=== PATIENT | female | born 1990 | race Two or more races ===

== ENCOUNTER 2018-10-25 15:30 | Observation (INO) | payer OTHER ==
[~2018-10-25] VITALS: Ht 167.6 cm; Wt 72.6 kg
[2018-10-25] MEDS ORDERED: LACTATED RINGER'S 1,000 ML IV ONE (16:56)
[2018-10-25] MEDS ORDERED: ACETAMINOPHEN 500 MG TAB PO ONE (17:00)
[2018-10-25 17:37] LABS: Alcohol, Urine < 3.0 mg/dL (0-5); Amphetamine Screen, Urine NEGATIVE (NEGATIVE); Barbiturate Scree,Urine NEGATIVE (NEGATIVE); Benzodiazephine Screen, Urine NEGATIVE (NEGATIVE); Cannabinoid Screen, Urine NEGATIVE (NEGATIVE); Cocaine Screen, Urine NEGATIVE (NEGATIVE); Opiate Scree,Urine NEGATIVE (NEGATIVE); Phencyclidine Screen, Urine NEGATIVE (NEGATIVE)
== END 2018-10-25 18:15 | disposition home or self-care (01) | DRG 833 ==
LOC: LDRP 15:30
PROVIDERS: ADMIT Obstetrics & Gynecology; ATTEND Obstetrics & Gynecology
DX: O26.892 Other specified pregnancy related conditions, second trimester (principal); R51 Headache; R10.9 Unspecified abdominal pain; O99.89 Other specified diseases and conditions complicating pregnancy, childbirth and the puerperium; M54.9 Dorsalgia, unspecified; Z3A.25 25 weeks gestation of pregnancy
CPT/HCPCS: 59025; 80307; 81002; G0378; 96361; 96366

== ENCOUNTER 2018-12-20 13:16 | Observation (INO) | payer OTHER ==
[~2018-12-20] VITALS: Ht 167.6 cm; Wt 69.9 kg
[2018-12-20 13:25] VITALS: BP 137/80
[2018-12-20] MEDS ORDERED: TERBUTALINE SULFATE 1 MG/ML 1ML VIAL SC ONE (15:15)
[2018-12-20] MEDS ORDERED: LACTATED RINGER'S 1,000 ML IV ONE (15:15)
[2018-12-20 15:39] LABS: Urine Bacteria NONE SEEN /hpf (None Seen); Urine Blood Negative /uL (Negative); Urine Specific Gravity 1.004 (1.001-1.035); Urine WBC 2 /hpf (0 - 5)
[2018-12-20 15:52] LABS: Alcohol, Urine < 3.0 mg/dL (0-5); Amphetamine Screen, Urine NEGATIVE (NEGATIVE); Barbiturate Scree,Urine NEGATIVE (NEGATIVE); Benzodiazephine Screen, Urine NEGATIVE (NEGATIVE); Cannabinoid Screen, Urine NEGATIVE (NEGATIVE); Cocaine Screen, Urine NEGATIVE (NEGATIVE); Opiate Scree,Urine NEGATIVE (NEGATIVE); Phencyclidine Screen, Urine NEGATIVE (NEGATIVE)
== END 2018-12-20 16:40 | disposition home or self-care (01) | DRG 566 ==
LOC: ER 13:16 → LDRP 14:00
PROVIDERS: ADMIT Obstetrics & Gynecology; ATTEND Obstetrics & Gynecology
DX: O26.893 Other specified pregnancy related conditions, third trimester (principal); M54.5 Low back pain; R55 Syncope and collapse; R42 Dizziness and giddiness; Z98.891 History of uterine scar from previous surgery; Z3A.33 33 weeks gestation of pregnancy
CPT/HCPCS: 59025; 76805; 80307; 81001; 81002; 96360; 96372; 99284; G0378; J3105

== ENCOUNTER 2019-01-12 15:31 | Observation (INO) | payer OTHER ==
[~2019-01-12] VITALS: Ht 167.6 cm; Wt 72.6 kg
[2019-01-12 15:39] VITALS: BP 105/50
[2019-01-12] MEDS ORDERED: PREN-96 PO (16:19)
[2019-01-12] MEDS ORDERED: FERR-20 PO (16:19)
[2019-01-12] MEDS ORDERED: LACTATED RINGER'S 1,000 ML IV ONE ×2 (17:00→20:24)
[2019-01-12] MEDS ORDERED: cefTRIAXone 1GM/50ML D5W 50 ML IV ONE (17:15)
[2019-01-12] MEDS: TERBUTALINE SULFATE 1 MG/ML 1ML VIAL SC SCH ×3 (17:40→18:45)
[2019-01-12 18:06] LABS: Alcohol, Urine < 3.0 mg/dL (0-5); Amphetamine Screen, Urine NEGATIVE (NEGATIVE); Barbiturate Scree,Urine NEGATIVE (NEGATIVE); Benzodiazephine Screen, Urine NEGATIVE (NEGATIVE); Cannabinoid Screen, Urine NEGATIVE (NEGATIVE); Cocaine Screen, Urine NEGATIVE (NEGATIVE); Opiate Scree,Urine NEGATIVE (NEGATIVE); Phencyclidine Screen, Urine NEGATIVE (NEGATIVE)
[2019-01-12] MEDS: BETAMETHASONE ACET (6MG/ML) 5ML VIAL IM SCH (18:45)
[2019-01-12] MEDS: NIFEdipine 10 MG CAP PO SCH (20:50)
[2019-01-13] MEDS: NIFEdipine 10 MG CAP PO SCH ×5 (00:43→16:00)
[2019-01-13] MEDS ORDERED: cefTRIAXone 1GM/50ML D5W 50 ML IV SCH (09:00)
[2019-01-13] MEDS ORDERED: BETAMETHASONE ACET (6MG/ML) 5ML VIAL IM SCH (10:00)
[2019-01-13] MEDS ORDERED: ACETAMINOPHEN 325 MG TAB PO PRN (12:00)
[2019-01-13] MEDS: BETAMETHASONE ACET (6MG/ML) 5ML VIAL IM SCH (15:44)
== END 2019-01-13 17:30 | disposition home or self-care (01) | DRG 566 ==
LOC: ER 15:31 → LDRP 15:55
PROVIDERS: ADMIT Specialist; ATTEND Specialist
DX: O62.9 Abnormality of forces of labor, unspecified (principal); O26.893 Other specified pregnancy related conditions, third trimester; M54.5 Low back pain; R10.30 Lower abdominal pain, unspecified; O99.89 Other specified diseases and conditions complicating pregnancy, childbirth and the puerperium; O34.219 Maternal care for unspecified type scar from previous cesarean delivery; Z3A.37 37 weeks gestation of pregnancy
CPT/HCPCS: 59025; 76805; 80307; 81002; 96365; 96366; 96372; 99284; G0378; J0696; J0702; J3105; J7030; 96361

== ENCOUNTER 2019-01-24 15:56 | Inpatient (IN) | payer SELFPAY ==
[~2019-01-24] VITALS: Ht 167.6 cm; Wt 74.8 kg
[~2019-01-24 15:56] MED LIST: FERR-20 PO; PREN-96 PO
[2019-01-24] MEDS ORDERED: TETRACAINE 1% INJ 2 ML VIAL IJ ONE (16:51)
[2019-01-24 17:06] LABS: Basophils # (auto) 0.1 uL; Monocytes # (auto) 0.7 uL; Nucleated Red Blood Cells % 0.1 %; Red Cell Distribution Width 15.2 % (11.8-14.3); White Blood Cell 9.4 10^3/uL (4.4-10.8)
[2019-01-24 17:09] LABS: Basophils % (auto) 0.9 % (0.0-2.0); Eosinophils # (auto) 0 uL; Eosinophils % (auto) 0.3 % (0.0-7.0); Hematocrit 27.8 % (36.0-46.0); Lymphocytes # (auto) 1.7 uL; Lymphocytes % (auto) 17.5 % (10.0-50.0); Mean Corpuscular Hemoglobin 27.4 pg (28.0-32.0); Mean Corpuscular Hgb Conc. 32.5 g/dL (32.0-36.0); Mean Corpuscular Volume 84.2 fL (80.0-100.0); Monocytes % (auto) 7.9 % (0.0-12.0); Neutrophils # (auto) 6.9 uL; Neutrophils % (auto) 73.4 % (37.0-80.0); Platelet Count (auto) 230 10^3/uL (140-450)
[2019-01-24] MEDS ORDERED: fentaNYL CITRATE 100 MCG/2 ML VL ONE (17:13)
[2019-01-24] MEDS ORDERED: MORPHINE SULF(PF) 0.5MG/ML 10ML VIAL ONE (17:13)
[2019-01-24] MEDS ORDERED: BUPIVACAINE/DEXTROSE MPF 0.75% 2 ML AMP IT ONE (17:13)
[2019-01-24] MEDS ORDERED: ePHEDrine SULFATE 50 MG/ML AMP ONE (17:13)
[2019-01-24] MEDS ORDERED: MIDAZOLAM HCL 1MG/1ML-2 ML VIAL ONE (17:13)
[2019-01-24] MEDS ORDERED: ONDANSETRON HCL 4 MG/2 ML VIAL ONE (17:13)
[2019-01-24] MEDS ORDERED: EPINEPHrine HCL 1 MG/1 ML AMP ONE (17:13)
[2019-01-24] MEDS ORDERED: SODIUM CHLORIDE LOCK 10 ML ONE (17:13)
[2019-01-24] MEDS ORDERED: OXYTOCIN 10 UNIT/ML 10ML VIAL ONE (17:13)
[2019-01-24] MEDS ORDERED: ceFAZolin 1GM VL ONE (17:13)
[2019-01-24 17:21] LABS: Albumin 2.7 g/dL (3.4-5.0); Calcium 8.6 mg/dL (8.5-10.1); Potassium 3.9 mmol/L (3.5-5.1)
[2019-01-24 17:22] LABS: Urine Bacteria FEW /hpf (None Seen); Urine Blood Negative /uL (Negative); Urine Mucus FEW (None Seen); Urine Specific Gravity 1.014 (1.001-1.035); Urine WBC 7 /hpf (0 - 5)
[2019-01-24 17:23] LABS: INR 0.92 (0.9-1.15); Partial Thromboplastin Time 20.2 sec (23.64-32.05)
[2019-01-24 17:26] LABS: Alcohol, Urine < 3.0 mg/dL (0-5); Amphetamine Screen, Urine NEGATIVE (NEGATIVE); Barbiturate Scree,Urine NEGATIVE (NEGATIVE); Benzodiazephine Screen, Urine NEGATIVE (NEGATIVE); Cannabinoid Screen, Urine NEGATIVE (NEGATIVE); Cocaine Screen, Urine NEGATIVE (NEGATIVE); Opiate Scree,Urine NEGATIVE (NEGATIVE); Phencyclidine Screen, Urine NEGATIVE (NEGATIVE)
[2019-01-24 17:26] LABS: BUN/Creatinine Ratio 18.5; Bilirubin, Total 0.2 mg/dL (0.2-1.0); Total Protein 7.5 g/dL (6.4-8.2); Uric Acid 2.4 mg/dL (2.6-6.0)
[2019-01-24] MEDS ORDERED: ONDANSETRON HCL 4 MG/2 ML VIAL IV PRN (17:30)
[2019-01-24] MEDS ORDERED: ceFAZolin 1GM/50ML 50 ML IV SCH (17:30)
[2019-01-24] MEDS ORDERED: KETOROLAC TROMETH 30 MG/ML 1ML VIAL IV ONE (18:30)
[2019-01-24] MEDS ORDERED: HYDROmorphone HCL 2 MG/ML VL IV PRN (18:30)
[2019-01-24] MEDS ORDERED: diphenhdrAMINE HCL 50 MG/1 ML VL IV PRN (18:30)
[2019-01-24] MEDS ORDERED: fentaNYL CITRATE 100 MCG/2 ML VL IV PRN (18:30)
[2019-01-24] MEDS ORDERED: METOCLOPRAMIDE HCL 5MG/ml INJ 2ml VIAL IV PRN (18:30)
[2019-01-24] MEDS ORDERED: MORPHINE SULFATE 4 MG/ML SYR/VIAL IV PRN (18:30)
--- NOTE | 2019-01-24 18:40 | NUR ---
Teaching: Reviewed information in [facility] booklet with patient. Discussed benefits of and risks associated with not . Discussed different positions, proper latch, feeding cues, and baby-led . Provided information of medication side effects related to . All questions and concerns addressed at this time. Patient verbalized understanding of information.
[2019-01-24 19:05] VITALS: BP 117/72
--- NOTE | 2019-01-24 19:05 | NUR ---
Post Op for LDRP: Received patient from PACU via bed to room 8A. Report received from Sindy MARRUFO. Patient A/A/Ox4, abdominal binder and bilateral SCD's are in place, IV fluids placed on pump and infusing per order, incisional site dressing clean/dry/intact and rea catheter to gravity draining clear yellow urine. Peripad clean and dry, mark care provided by Sindy MARRUFO in PACU. Incentive Spirometer at bedside and instruction on proper use with return demonstration done by patient. Pt denies sob, pain, or discomfort.
[2019-01-24 20:00] VITALS: BP 125/69
[2019-01-24 21:00] VITALS: BP 133/72
[2019-01-24 22:00] VITALS: BP 112/60
[2019-01-24 23:00] VITALS: BP 111/62
[2019-01-24] MEDS: LACT. RINGERS/OXYTOCIN 20UNITS 1,000 ML IV SCH (23:00)
[2019-01-24] MEDS: LACTATED RINGER'S 1,000 ML IV SCH (23:49)
[2019-01-24] MEDS: MORPHINE SULF INJ 2 MG/ML SYRINGE 1ML IV PRN (23:50)
[2019-01-25] VITALS (11 sets, daily range): BP systolic 100–120; BP diastolic 55–78
[2019-01-25 00:01] LABS: Basophils # (auto) 0 uL; Basophils % (auto) 0.1 % (0.0-2.0); Eosinophils # (auto) 0 uL; Eosinophils % (auto) 0.1 % (0.0-7.0); Hematocrit 28.3 % (36.0-46.0); Hemoglobin 8.9 g/dL (12.2-16.2); Lymphocytes # (auto) 1.6 uL; Lymphocytes % (auto) 9.2 % (10.0-50.0); Mean Corpuscular Hemoglobin 26.3 pg (28.0-32.0); Mean Corpuscular Hgb Conc. 31.6 g/dL (32.0-36.0); Mean Corpuscular Volume 83.4 fL (80.0-100.0); Monocytes % (auto) 6.1 % (0.0-12.0); Neutrophils # (auto) 14.3 uL; Neutrophils % (auto) 84.5 % (37.0-80.0); Platelet Count (auto) 209 10^3/uL (140-450); Red Blood Cells 3.39 10^6/uL (4.0-5.20); Red Cell Distribution Width 15.3 % (11.8-14.3); White Blood Cell 16.9 10^3/uL (4.4-10.8)
[2019-01-25] MEDS: LACTATED RINGER'S 1,000 ML IV SCH ×3 (00:31→16:31)
[2019-01-25] MEDS: ceFAZolin 1GM/50ML 50 ML IV SCH ×3 (01:41→17:35)
[2019-01-25] MEDS: MORPHINE SULF INJ 2 MG/ML SYRINGE 1ML IV PRN ×2 (04:44→08:53)
--- NOTE | 2019-01-25 05:00 | NUR ---
Itching Earlier this shift, pt c/o itching after arriving from PACU. Benadryl given at 2046 per MD order. Pt c/o itching again at 429. Pt states itching is tolerable and was relieved after benadryl but came back around 230. Pt has not mentioned itching to this RN until 429. Pt PRN benadryl order reached complete at 2299. SBAR and update to Delta Fisher CNM, order received for benadryl x1.
[2019-01-25] MEDS ORDERED: diphenhdrAMINE HCL 50 MG/1 ML VL IV ONE (05:15)
[2019-01-25] MEDS: LACT. RINGERS/OXYTOCIN 20UNITS 1,000 ML IV SCH (05:35)
[2019-01-25 07:59] LABS: Basophils # (auto) 0 uL; Basophils % (auto) 0.3 % (0.0-2.0); Eosinophils # (auto) 0 uL; Eosinophils % (auto) 0.3 % (0.0-7.0); Hemoglobin 8.5 g/dL (12.2-16.2); Lymphocytes # (auto) 1.4 uL; Lymphocytes % (auto) 10.8 % (10.0-50.0); Mean Corpuscular Hemoglobin 27.1 pg (28.0-32.0); Mean Corpuscular Hgb Conc. 32.7 g/dL (32.0-36.0); Mean Corpuscular Volume 82.7 fL (80.0-100.0); Monocytes # (auto) 0.8 uL; Monocytes % (auto) 6.5 % (0.0-12.0); Neutrophils # (auto) 10.5 uL; Neutrophils % (auto) 82.1 % (37.0-80.0); Platelet Count (auto) 177 10^3/uL (140-450); Red Blood Cells 3.14 10^6/uL (4.0-5.20); White Blood Cell 12.8 10^3/uL (4.4-10.8)
[2019-01-25] MEDS ORDERED: HYDROcodone-ACET 5/325MG TAB PO PRN (09:15)
--- NOTE | 2019-01-25 09:25 | NUR ---
Rea catheter dc'd Order to discontinue rea catheter. Rea dc'd with clean technique following deflation of balloon. Patient tolerated well with no complaints of pain. Continue care.
--- NOTE | 2019-01-25 09:30 | NUR ---
INCISION OPEN TO AIR, CLEAN DRY AND INTACT, NO REDNESS OR EVIDENCE OF INFECTION NOTED.
[2019-01-25] MEDS: HYDROcodone-ACET 5/325MG TAB PO PRN ×3 (10:14→21:00)
--- NOTE | 2019-01-25 10:15 | NUR ---
Bottle-feeding Education: Patient encouraged to breastfeed. Benefits of and the risk of providing formula to was discussed. Patient verbalized understanding of the benefits and is aware of risk and insists on bottle-feeding. Formula provided and instruction on formula preoperation from the [facility] booklet reviewed with patient.
[2019-01-25] MEDS: DOCUSATE SOD 100 MG CAP PO SCH ×2 (10:16→22:10)
--- NOTE | 2019-01-25 11:04 | NUR ---
Received Social Service consult due to mother not receiving any care. The pt stated that initially she had her Mom's insurance. The the pt turned 28 and she was taken off her mother's insurance. Pt applied for medi-kaleb and did have an appointment but Her physician would not take it. Pt stated she applied again and was given medi-kaleb. However, by then pt was 28 weeks along. Pt states she was told she was high risk and she could not find a physician to accept her, Pt states she came here to [facility] to the clinic. Pt was paying for ultra sounds out of her own pocket. Mom was considering hiring a middleware architect but pt states it was too expensive. Pt has support from her fidieter. There are many relatives who support them. Pt and mir also has a 10yr od daught and a 2yr old toddler. Pt and mir with be returning back home to [place] after the holidays.
--- NOTE | 2019-01-25 11:30 | NUR ---
Ambulation: Patient OOB with standby assistance by RN. Patient ambulated to bathroom with steady gait. Patient able to void without difficulty. Pericare teaching provided with returned demonstration by patient. Clean gown provided and bed linen changed. Patient ambulated back to bed with steady gait and no distress noted.
[2019-01-25] MEDS: IBUPROFEN 800 MG TAB PO PRN ×2 (11:31→20:10)
[2019-01-25] MEDS ORDERED: WITCH HAZEL-GLYCERIN PAD TOP ONE ×2 (11:54→12:45)
[2019-01-25] MEDS ORDERED: DERMOPLAST 60ML BOTTLE TOP ONE ×2 (11:54→12:45)
[2019-01-25] MEDS: SIMETHICONE 80 MG CHEWABLE TABLET PO PRN (16:23)
[2019-01-25] MEDS ORDERED: diphenhdrAMINE HCL 25 MG CAP PO ONE (20:30)
[2019-01-26] MEDS: HYDROcodone-ACET 5/325MG TAB PO PRN ×4 (01:30→23:14)
[2019-01-26 02:42] VITALS: BP 93/54
[2019-01-26] MEDS: SIMETHICONE 80 MG CHEWABLE TABLET PO PRN ×2 (03:59→12:59)
[2019-01-26] MEDS: IBUPROFEN 800 MG TAB PO PRN ×3 (03:59→19:57)
[2019-01-26 05:06] LABS: RPR Non Reactive (Non Reactive)
[2019-01-26 07:10] VITALS: BP 107/59
[2019-01-26] MEDS: DOCUSATE SOD 100 MG CAP PO SCH ×2 (09:44→19:57)
[2019-01-26 11:10] VITALS: BP 102/71
--- NOTE | 2019-01-26 11:10 | NUR ---
PT UP AND AMBULATING IN THE HALLWAY, TOLERATING WELL
[2019-01-26 12:06] LABS: Rubella Antibodies, IgG 0.99 index (Immune >0.99)
--- NOTE | 2019-01-26 13:25 | NUR ---
PTs phone unit and reports that the family in the next bed and he does not want a sick child around his . This RN enters room and speaks to PT in 8B and observes visitors, there is no child in the room that is coughing or sneezing. Spoke with PT and gave her an option to change rooms. PT reports she is fine to stay in her room/bed 7a.
[2019-01-26 15:00] VITALS: BP 112/64
--- NOTE | 2019-01-26 19:00 | NUR ---
INCISION OPEN TO AIR, CLEAN DRY AND INTACT, NO REDNESS OR EVIDENCE OF INFECTION NOTED.
[2019-01-26 19:10] VITALS: BP 111/74
[2019-01-26 23:00] VITALS: BP 120/70
[2019-01-27 03:00] VITALS: BP 119/76
[2019-01-27] MEDS: HYDROcodone-ACET 5/325MG TAB PO PRN ×2 (03:45→08:25)
[2019-01-27 06:55] VITALS: BP 109/76
[2019-01-27] MEDS ORDERED: WITCH HAZEL-GLYCERIN PAD TOP ONE (07:27)
[2019-01-27] MEDS ORDERED: WITCH HAZEL-GLYCERIN PAD TOP PRN (07:30)
[2019-01-27 11:00] VITALS: BP 113/75
--- NOTE | 2019-01-27 12:15 | NUR ---
Discharge: Discharge instructions given as ordered. Pt encouraged to follow up with SENIOR BI DEVELOPER as instructed. All questions and concerns addressed. Patient verbalized understanding. Medication reconciliation completed and copy given to patient. All required/requested vaccines given and copies of vaccinations given to patient. Patient encouraged to prepare to depart unit.
--- NOTE | 2019-01-27 12:35 | NUR ---
Discharge: Patient taken to vehicle ambulatory via steady gait, wheelchair declined, with all personal belongings, accompanied by staff and family member. No distress noted at time of departure, no adverse changes in status since initial assessment.
== END 2019-01-27 12:35 | disposition home or self-care (01) | DRG 788 ==
LOC: LDRP 15:56 → OBSVTOIN 15:56 → LDRP 22:28
PROVIDERS: ADMIT Obstetrics & Gynecology; ATTEND Obstetrics & Gynecology
PROC: 10D00Z1 Extraction of Products of Conception, Low, Open Approach (ICD-10-PCS; principal; 2019-01-24 17:29)
DX: O34.219 Maternal care for unspecified type scar from previous cesarean delivery (principal); Z37.0 Single live birth; O99.02 Anemia complicating childbirth; D64.9 Anemia, unspecified; Z3A.37 37 weeks gestation of pregnancy
CPT/HCPCS: 36415; 51702; 59025; 80053; 80307; 81001; 84112; 84550; 85025; 85610; 85730; 86592; 86762; 86790; 86850; 86900; 86901; 87340; 94762; 96365; 96366; 96374; 96375; G0378; J0171; J0690; J1885; J2250; J2405; J2590

== ENCOUNTER 2022-01-05 16:45 | Inpatient (IN) | payer MEDICAID, OTHER ==
[~2022-01-05] VITALS: Ht 167.6 cm; Wt 74.0 kg
[2022-01-05] MEDS ORDERED: MORPHINE SULFATE 4 MG/ML SYR/VIAL IV ONE (17:15)
[2022-01-05] MEDS ORDERED: ONDANSETRON HCL 4 MG/2 ML VIAL IV ONE (17:15)
[2022-01-05 17:16] LABS: Urine Bacteria NONE SEEN /hpf (None Seen); Urine Blood Negative /uL (Negative); Urine Mucus FEW (None Seen); Urine Specific Gravity 1.021 (1.001-1.035); Urine WBC 3 /hpf (0 - 5)
[2022-01-05 17:22] LABS: Basophils # (auto) 0 10 ^3/uL (0-0.2); Basophils % (auto) 0.5 % (0.0-2.0); Eosinophils # (auto) 0.2 10 ^3/uL (0-0.8); Eosinophils % (auto) 2.3 % (0.0-7.0); Hematocrit 42.7 % (36.0-46.0); Lymphocytes # (auto) 2.5 10 ^3/uL (0.4-5.4); Lymphocytes % (auto) 35.5 % (10.0-50.0); Mean Corpuscular Hemoglobin 29.2 pg (28.0-32.0); Mean Corpuscular Hgb Conc. 32.8 g/dL (32.0-36.0); Mean Corpuscular Volume 89.2 fL (80.0-100.0); Monocytes # (auto) 0.5 10 ^3/uL (0-1.3); Monocytes % (auto) 7.1 % (0.0-12.0); Neutrophils # (auto) 3.9 10 ^3/uL (1.6-8.6); Neutrophils % (auto) 54.6 % (37.0-80.0); Nucleated Red Blood Cells % 0.1 %; Red Blood Cells 4.79 10^6/uL (4.0-5.20); Red Cell Distribution Width 13.7 % (11.8-14.3); White Blood Cell 7.1 10^3/uL (4.4-10.8)
[2022-01-05] MEDS ORDERED: IOHEXOL 300 MG/ML 100ML BOTTLE IJ ONE (17:31)
[2022-01-05 17:44] LABS: Albumin 4.1 g/dL (3.4-5.0); BUN/Creatinine Ratio 12.5; Calcium 9.5 mg/dL (8.5-10.1); Potassium 3.9 mmol/L (3.5-5.1)
[2022-01-05 17:46] LABS: Bilirubin, Total 0.3 mg/dL (0.2-1.0); Total Protein 7.9 g/dL (6.4-8.2)
[2022-01-06] MEDS: D5W/SOD CHLO 0.9% 1,000 ML IV SCH (02:54)
[2022-01-06] MEDS: ONDANSETRON HCL 4 MG/2 ML VIAL IV PRN ×2 (03:44→09:38)
[2022-01-06] MEDS: MORPHINE SULFATE INJ 2 MG/ml SYRG IV PRN ×3 (03:47→18:57)
[2022-01-06 04:14] LABS: INR 0.98 (0.9-1.15); Partial Thromboplastin Time 25.9 sec (24.6-33.4)
[2022-01-06] MEDS: PANTOPRAZOLE 40 MG/10 ML VIAL INJ IV SCH (09:38)
[2022-01-06] MEDS ORDERED: BUPIVACAINE W/ EPINEPH 0.25% INJ 50ML MDV ONE (12:26)
[2022-01-06] MEDS ORDERED: ceFAZolin 1GM/50ML 100 ML IV ONE (12:40)
[2022-01-06] MEDS ORDERED: MIDAZOLAM HCL 2MG/2ML 2ml VIAL (1mg/ml) ONE (12:44)
[2022-01-06] MEDS ORDERED: fentaNYL CITRATE 100 MCG/2 ML VL ONE (12:44)
[2022-01-06] MEDS ORDERED: MEPERIDINE HCL (50 MG/ML) 1 ML VIAL ONE (12:44)
[2022-01-06] MEDS ORDERED: DexAMETHasone SOD PHOS 10MG/1ML VIAL INJ ONE (12:45)
[2022-01-06] MEDS ORDERED: ROCURONIUM 10MG/ML 10ML VIAL IV ONE (12:45)
[2022-01-06] MEDS ORDERED: PROPOFOL 10 MG/ML 20 ML IV ONE (12:45)
[2022-01-06] MEDS ORDERED: ONDANSETRON HCL 4 MG/2 ML VIAL IV PRN (14:30)
[2022-01-06] MEDS ORDERED: LABETALOL HCL 5 MG/ML 4ML SYRINGE IV PRN (14:30)
[2022-01-06] MEDS ORDERED: MORPHINE SULFATE 4 MG/ML SYR/VIAL IV PRN (14:30)
[2022-01-06] MEDS ORDERED: MIDAZOLAM HCL 2MG/2ML 2ml VIAL (1mg/ml) IV PRN (14:30)
[2022-01-06] MEDS ORDERED: KETOROLAC TROMETH 30 MG/ML 1ML VIAL IV ONE (14:30)
[2022-01-06] MEDS ORDERED: ePHEDrine SULFATE 50 MG/ML AMP IV PRN (14:30)
[2022-01-06] MEDS ORDERED: HYDROmorphone HCL 2 MG/ML VL/or syr ONE (14:33)
[2022-01-06] MEDS: HYDROmorphone HCL 2 MG/ML VL/or syr IV PRN ×3 (14:33→15:27)
[2022-01-06 19:57] VITALS: BP 126/71
[2022-01-06 20:00] VITALS: BP 126/71
[2022-01-06 20:57] VITALS: BP 108/70
[2022-01-07 00:36] VITALS: BP 108/70
[2022-01-07] MEDS: MORPHINE SULFATE INJ 2 MG/ml SYRG IV PRN ×2 (04:11→09:09)
[2022-01-07 05:46] VITALS: BP 107/65
[2022-01-07 06:48] LABS: Basophils # (auto) 0 10 ^3/uL (0-0.2); Basophils % (auto) 0.2 % (0.0-2.0); Eosinophils # (auto) 0.1 10 ^3/uL (0-0.8); Eosinophils % (auto) 0.9 % (0.0-7.0); Hematocrit 37.8 % (36.0-46.0); Hemoglobin 12.7 g/dL (12.2-16.2); Lymphocytes # (auto) 1.2 10 ^3/uL (0.4-5.4); Lymphocytes % (auto) 12.3 % (10.0-50.0); Mean Corpuscular Hemoglobin 30.3 pg (28.0-32.0); Mean Corpuscular Hgb Conc. 33.6 g/dL (32.0-36.0); Monocytes # (auto) 0.5 10 ^3/uL (0-1.3); Monocytes % (auto) 5.1 % (0.0-12.0); Neutrophils # (auto) 7.8 10 ^3/uL (1.6-8.6); Neutrophils % (auto) 81.5 % (37.0-80.0); Nucleated Red Blood Cells % 0.1 %; Red Cell Distribution Width 13.7 % (11.8-14.3); White Blood Cell 9.6 10^3/uL (4.4-10.8)
[2022-01-07 07:33] LABS: BUN/Creatinine Ratio 6.6; Calcium 8.9 mg/dL (8.5-10.1); Potassium 3.7 mmol/L (3.5-5.1)
[2022-01-07 09:00] VITALS: BP 109/64
[2022-01-07] MEDS: PANTOPRAZOLE 40 MG/10 ML VIAL INJ IV SCH (09:09)
[2022-01-07] MEDS: D5W/SOD CHLO 0.9% 1,000 ML IV SCH (09:10)
[2022-01-07] MEDS: HYDROcodone-ACET 5/325MG TAB PO PRN ×2 (12:07→16:43)
[2022-01-07 13:00] VITALS: BP 111/68
[2022-01-07 17:01] VITALS: BP 124/81
== END 2022-01-07 18:25 | disposition home or self-care (01) | DRG 228 ==
LOC: ER 16:45 → OVERFLOW 01-06 02:46 → WEST WING 01-06 17:20
PROVIDERS: ADMIT Nurse Practitioner; ATTEND Student in an Organized Health Care Education/Training Program
PROC: 0WQF0ZZ Repair Abdominal Wall, Open Approach (ICD-10-PCS; principal; 2022-01-06 13:02)
DX: K42.0 Umbilical hernia with obstruction, without gangrene (principal); Z20.822 Contact with and (suspected) exposure to COVID-19; Z83.3 Family history of diabetes mellitus
CPT/HCPCS: 36415; 74177; 80048; 80053; 81001; 81025; 85025; 85610; 85730; 87426; 96361; 96374; 96375; 96376; C9113; G0378; J0690; J1100; J2250; J2405; J2704; J7042

== ENCOUNTER 2022-12-16 08:57 | Emergency (ER) | payer MEDICAID ==
[~2022-12-16] VITALS: Ht 170.2 cm; Wt 91.7 kg
[~2022-12-16 08:57] MED LIST changes: -FERR-20 PO; +FERR325T24 PO
[2022-12-16 11:35] VITALS: BP 138/93; RESP 18; TEMP 97.7; O2SAT 97
[2022-12-16 12:27] VITALS: PULSE 51
[2022-12-16 13:04] LABS: Basophils # (auto) 0.1 10 ^3/uL (0-0.2); Basophils % (auto) 0.8 % (0.0-2.0); Eosinophils # (auto) 0.1 10 ^3/uL (0-0.8); Eosinophils % (auto) 1.8 % (0.0-7.0); Hematocrit 40.9 % (36.0-46.0); Hemoglobin 13.6 g/dL (12.2-16.2); Lymphocytes # (auto) 2.4 10 ^3/uL (0.4-5.4); Lymphocytes % (auto) 30.3 % (10.0-50.0); Mean Corpuscular Hemoglobin 30.7 pg (28.0-32.0); Mean Corpuscular Hgb Conc. 33.2 g/dL (32.0-36.0); Mean Corpuscular Volume 92.5 fL (80.0-100.0); Monocytes # (auto) 0.6 10 ^3/uL (0-1.3); Monocytes % (auto) 7.7 % (0.0-12.0); Neutrophils # (auto) 4.6 10 ^3/uL (1.6-8.6); Neutrophils % (auto) 59.4 % (37.0-80.0); Nucleated Red Blood Cells % 0.2 %; Red Blood Cells 4.42 10^6/uL (4.0-5.20); Red Cell Distribution Width 13.4 % (11.8-14.3); White Blood Cell 7.8 10^3/uL (4.4-10.8)
[2022-12-16 13:18] LABS: Alanine Aminotransferase 109 U/L (7-40); Albumin 4.8 g/dL (3.2-4.8); Alkaline Phosphatase 82 U/L (46-116); Anion Gap 6 (5-15); Aspartate Aminotransferase 42 U/L (13-40); Bilirubin, Total 0.4 mg/dL (0.2-1.0); Blood Urea Nitrogen 10 mg/dL (9-23); Calcium 10.2 mg/dL (8.5-10.1); Carbon Dioxide 28 mmol/L (20-30); Chloride 108 mmol/L (98-107); Glucose 89 mg/dL (74-106); Sodium 142 mmol/L (136-145); Total Protein 7.4 g/dL (5.7-8.2)
[2022-12-16] MEDS ORDERED: NAP500T PO (13:42)
[2022-12-16] MEDS ORDERED: CYCL-839 PO (13:42)
[2022-12-16] MEDS ORDERED: KETOROLAC TROMETH 60MG/2ML VIAL IM ONE (13:45)
== END 2022-12-16 14:13 | disposition home or self-care (01) ==
LOC: ER 08:57
DX: M79.602 Pain in left arm (principal); R51.9 Headache, unspecified; Z98.890 Other specified postprocedural states; Z79.899 Other long term (current) drug therapy
CPT/HCPCS: 36415; 72125; 80053; 81025; 84484; 85025; 93005; 93971; 96372; 99285; J1885

== ENCOUNTER 2023-12-04 17:24 | Emergency (ER) | payer MEDICAID ==
[~2023-12-04] VITALS: Ht 170.2 cm; Wt 87.3 kg
[~2023-12-04 17:24] MED LIST changes: +CYCL-839 PO; +NAP500T PO
[2023-12-04 18:24] VITALS: BP 146/95; PULSE 90; RESP 18; TEMP 98.3; O2SAT 98
[2023-12-04] MEDS: KETOROLAC TROMETH 60MG/2ML VIAL IM ONE (18:49)
== END 2023-12-04 18:52 | disposition home or self-care (01) ==
LOC: ER 17:24
DX: S00.83XA Contusion of other part of head, initial encounter (principal); W26.8XXA Contact with other sharp object(s), not elsewhere classified, initial encounter; Y93.01 Activity, walking, marching and hiking; Y92.89 Other specified places as the place of occurrence of the external cause; Y99.8 Other external cause status
CPT/HCPCS: 70450; 70486; 72040; 96372; 99285; J1885

== ENCOUNTER 2024-01-19 13:55 | Emergency (ER) | payer MEDICAID ==
[~2024-01-19] VITALS: Ht 167.6 cm; Wt 88.6 kg
[2024-01-19 14:40] VITALS: BP 139/74; PULSE 76; RESP 18; TEMP 98.1; O2SAT 99
--- NOTE | 2024-01-19 14:55 | ED.PDOC ---
Eye-HPI HPI Comments 33-year-old with no MHx presents with a chief complaint of a growth to the lateral aspect of the sclera. The onset occurred several weeks ago the patient concern was that may be serious pathology. No associated symptoms. Denies vision changes Denies eye discharge Denies hearing changes, nausea, vomiting Denies eye pain with movement, eye pain in general, difficulty keeping eye open, feeling of something stuck in the eye, sensitivity to light Chief Complaint: Headache Time Seen by MD: 14:06 Primary Care Provider: NONE Reviewed Notes: Nurses Notes, Medications, Allergies Allergies: Coded Allergies: NO KNOWN ALLERGIES (Unverified , 12/20/18) Home Meds Active Scripts Naproxen (NAPROSYN TABLET) 500 Mg Tb, 1 TAB PO BID PRN, #60 TAB 0 Refills Prov:AMAIRANI BECKETT [facility] 12/16/22 Cyclobenzaprine Hcl (Cyclobenzaprine Hcl) 10 Mg Tab, 10 MG PO TID, #12 TAB 0 Refills Prov:AMAIRANI BECKETT [facility] 12/16/22 Reported Medications Ferrous Sulfate (Ferrous Sulfate) 325 Mg Tab, 325 MG PO DAILY for 30 Days, MG 01/12/19 Vit W/ Ferrous Fumara ( One Daily) Daily Tab, 1 TAB PO DAILY, #90 TAB 3 Refills 01/12/19 Information Source: Patient Mode of Arrival: Ambulatory Past Medical History PAST MEDICAL HISTORY: Denies Surgical History: ACADEMY EDUCATION DIRECTOR History: No Pertinent ACADEMY EDUCATION DIRECTOR History Family History Family History: Family hx of DM Social History Smoker: Non-Smoker Alcohol: Denies ETOH Use Drugs: Denies Drug Use Lives In: Home Physical Exam General Appearance: No Apparent Distress, Normal HEENT: Normal ENT Inspection, Pharynx Normal, TMs Normal Neck: Full Range of Motion, Non-Tender, Normal, Normal Inspection Respiratory: Chest Non-Tender, Lungs Clear, No Accessory Muscle Use, No Respiratory Distress, Normal Breath Sounds Cardiovascular: No Edema, No JVD, No Murmur, No Gallop, Normal Peripheral Pulses, Regular Rate/Rhythm Breast Exam: Deferred Gastrointestinal: No Organomegaly, Non Tender, No Pulsatile Mass, Normal Bowel Sounds, Soft Genitalia: Deferred Pelvic: Deferred Rectal: Deferred Extremities: No calf tenderness, Normal capillary refill, Normal inspection, Normal range of motion, Non-tender, No pedal edema Musculoskeletal : Apperance: Normal Neurologic: Alert, knockdown worker II-XII nml as Tested, No Motor Deficits, Normal Affect, Normal Mood, No Sensory Deficits Cerebellar Function: Normal Reflexes: Normal Skin: Dry, Normal Color, Warm Lymphatic: No Adenopathy Was a procedure done? Was a procedure done?: No EENT DIFF Eye: Other X-Ray, Labs, Meds, VS Vital Signs Date Time Temp Pulse Resp B/P (MAP) Pulse Ox O2 Delivery O2 Flow Rate FiO2 01/19/24 14:40 98.1 76 18 139/74 (95) 99 98.1 01/19/24 14:40 76 18 99 Room Air 01/19/24 14:08 98.1 76 18 139/74 (95) 99 X-Ray, Labs, Meds, VS Comment Patient is stable for discharge at this time. External notes reviewed. Test results and diagnostic imaging interpreted. All diagnostic findings, discharge care, education and instructions provided Follow-up with PCP in 2 to 3 days Patient verbalized understanding and agreed to treatment plan Vital signs stable, afebrile, no acute distress noted Patient ambulatory with strong steady gait Advised to return precautions for any new or worsening symptoms, return to ER immediately for re-evaluation Patient is aware that the purpose of this visit was for an acute medical emergency requiring emergent stabilization. Chronic conditions, including malignancies have not been ruled out. Patient is instructed to follow up with PCP as directed and discharge instructions for continued care and workup. If unable to arrange follow-up, patient is to return to the emergency department for reassessment. Patient (parent or legal guardian if applicable) was given verbal and written discharge instructions and acknowledges understanding. 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
== END 2024-01-19 15:01 | disposition home or self-care (01) ==
LOC: ER 13:55
DX: D31.01 Benign neoplasm of right conjunctiva (principal)

== ENCOUNTER 2024-11-13 09:02 | Emergency (ER) | payer MEDICAID ==
[~2024-11-13] VITALS: Ht 167.6 cm; Wt 85.9 kg
[2024-11-13 09:05] VITALS: PULSE 56
--- NOTE | 2024-11-13 09:26 | ED.PDOC ---
History of Present Illness HPI Comments 34 year old female presents to the ED with a chief complaint of headache onset 6 days. Patient states she has been experiencing headache for the past 6 days as well as light sensitivity. She has been taking Tylenol and Excedrin with no improvement of symptoms, last dose was last night. Lat night, patient noticed pain worsened, was described as a burning sensation, had relief with taking a shower. She also began experiencing nausea/vomiting last night. Denies any PMHx as well as chest pain, shortness of breath, dizziness, fever, chills, cough, cold, congestion, abdominal pain, diarrhea, numbness/tingling. No other symptoms or modifying factors present at this time. Chief Complaint: Headache Time Seen by MD: 09:15 Primary Care Provider: NONE Reviewed Notes: Medications, Allergies Allergies: Coded Allergies: NO KNOWN ALLERGIES (Unverified , 12/20/18) Home Meds Active Scripts Naproxen (NAPROSYN TABLET) 500 Mg Tb, 1 TAB PO BID PRN, #60 TAB 0 Refills Prov:AMAIRANI BECKETT [facility] 12/16/22 Cyclobenzaprine Hcl (Cyclobenzaprine Hcl) 10 Mg Tab, 10 MG PO TID, #12 TAB 0 Refills Prov:AMAIRANI BECKETT [facility] 12/16/22 Reported Medications Ferrous Sulfate (Ferrous Sulfate) 325 Mg Tab, 325 MG PO DAILY for 30 Days, MG 01/12/19 Vit W/ Ferrous Fumara ( One Daily) Daily Tab, 1 TAB PO DAILY, #90 TAB 3 Refills 01/12/19 Information Source: Patient Mode of Arrival: Ambulatory Severity: Moderate Timing: Days Duration: Since onset Prehospital treatment: Pain Meds Past Medical History PAST MEDICAL HISTORY: Denies Surgical History: BOARD WORKER History: No Pertinent BOARD WORKER History Family History Family History: Family hx of DM Social History Smoker: Non-Smoker Alcohol: Denies ETOH Use Drugs: Denies Drug Use Lives In: Home Constitutional: denies: chills, diaphoresis, fatigue, fever, malaise, sweats, weakness, others EENTM: reports: photophobia; denies: blurred vision, double vision, ear bleeding, ear discharge, ear drainage, ear pain, ear ringing, eye pain, eye redness, hearing loss, mouth pain, mouth swelling, nasal discharge, nose bleeding, nose congestion, nose pain, tearing, throat pain, throat swelling, voice changes, others Respiratory: denies: cough, hemoptysis, orthopnea, SOB at rest, shortness of breath, SOB with excertion, stridor, wheezing, others Cardiovascular: denies: chest pain, dizzy spells, diaphoresis, Dyspnea on exertion, edema, irregular heart beat, left arm pain, lightheadedness, palpitations, PND, syncope, others Gastrointestinal: reports: nausea, vomiting; denies: abdomen distended, abdominal pain, blood streaked bowels, constipated, diarrhea, dysphagia, difficulty swallowing, hematemesis, melena, poor appetite, poor fluid intake, rectal bleeding, rectal pain, others Genitourinary: denies: abnormal vagina bleeding, burning, dyspareunia, dysuria, flank pain, frequency, hematuria, incontinence, pain, , vagina discharge, urgency, others Neurological: reports: headache; denies: dizziness, fainting, left sided numbness, left sided weakness, numbness, paresthesia, pre-existing deficit, right sided numbness, right sided weakness, seizure, speech problems, tingling, tremors, weakness, others Musculoskeletal: denies: back pain, gout, joint pain, joint swelling, muscle pain, muscle stiffness, neck pain, others Integumetry: denies: bruises, change in color, change in hair/nails, dryness, laceration, lesions, lumps, rash, wounds, others Allergic/Immunocompromised: denies: Difficulty Healing, Frequent Infections, Hives, Itching, others Hematologic/Lymphatic: denies: anemia, blood clots, easy bleeding, easy bruising, swollen glands, others Endocrine: denies: excessive hunger, excessive sweating, excessive thirst, excessive urination, flushing, intolerance to cold, intolerance to heat, un explained weight gain, unexplained weight loss, others Psychiatric: denies: anxiety, bipolar disorder, depression, hopeless, panic disorder, schizophrenia, sleepless, suicidal, others All Other Systems: Reviewed and Negative Physical Exam General Appearance: Normal HEENT: Normal ENT Inspection, Pharynx Normal, TMs Normal Neck: Full Range of Motion, Non-Tender, Normal, Normal Inspection Respiratory: Chest Non-Tender, Lungs Clear, No Accessory Muscle Use, No Respiratory Distress, Normal Breath Sounds Cardiovascular: No Edema, No JVD, No Murmur, No Gallop, Normal Peripheral Pulses, Regular Rate/Rhythm Breast Exam: Deferred Gastrointestinal: No Organomegaly, Non Tender, No Pulsatile Mass, Normal Bowel Sounds, Soft Genitalia: Deferred Pelvic: Deferred Rectal: Deferred Extremities: No calf tenderness, Normal capillary refill, Normal inspection, Normal range of motion, Non-tender, No pedal edema Musculoskeletal : Apperance: Normal Neurologic: Alert, movie shot camera operator II-XII nml as Tested, No Motor Deficits, Normal Affect, Normal Mood, No Sensory Deficits Cerebellar Function: Normal Reflexes: Normal Skin: Dry, Normal Color, Warm Lymphatic: No Adenopathy Was a procedure done? Was a procedure done?: No Differential Dx Considerations may include: migraine X-Ray, Labs, Meds, VS Vital Signs Date Time Temp Pulse Resp B/P (MAP) Pulse Ox O2 Delivery O2 Flow Rate FiO2 11/13/24 09:05 98.8 56 17 115/47 97 98.8 Current Medications Medications (Trade) Dose Ordered Sig/Leroy Route Start Time Stop Time Status Last Admin Sodium Chloride 1,000 ml @ 1,000 mls/hr Q1H ONCE IV 11/13/24 09:15 11/13/24 10:14 DC 11/13/24 09:42 Metoclopramide HCl (Reglan Injection) 10 mg ONCE ONCE IV 11/13/24 09:15 11/13/24 09:17 DC 11/13/24 09:43 Ketorolac Tromethamine (Toradol Injection) 15 mg ONCE ONCE IV 11/13/24 09:15 11/13/24 09:17 DC 11/13/24 09:44 Acetaminophen (Tylenol Tablet) 650 mg ONCE ONCE PO 11/13/24 09:15 11/13/24 09:17 DC 11/13/24 09:43 Time of 1ST Reevaluation: 09:45 Reevaluation 1ST: Unchanged Patient Education/Counseling: Diagnosis, Treatment, Prognosis Family Education/Counseling: Diagnosis, Treatment, Prognosis SEPSIS Sepsis Screen Date sepsis recognized/suspect: Nov 13, 2024 Time Sepsis recognized/suspect: 904 Recent Procedure: No On Antibiotic Therapy: No Respiratory Rate >20: No Heart Rate >90: No Temp<36 C (96.8 F) or >38.3 C: No SBP <90 or MAP <65 mmHG: No New Acute Mental Status Change: No Is the patient on CPAP, BIPAP,: No Vital Signs Date Time Temp Pulse Resp B/P (MAP) Pulse Ox O2 Delivery O2 Flow Rate FiO2 11/13/24 09:05 98.8 56 17 115/47 97 98.8 Medications Medications Dose Ordered Sig/Leroy Route Start Time Stop Time Status Last Admin Dose Admin Acetaminophen 650 mg ONCE ONCE PO 11/13/24 09:15 11/13/24 09:17 DC 11/13/24 09:43 Ketorolac Tromethamine 15 mg ONCE ONCE IV 11/13/24 09:15 11/13/24 09:17 DC 11/13/24 09:44 Metoclopramide HCl 10 mg ONCE ONCE IV 11/13/24 09:15 11/13/24 09:17 DC 11/13/24 09:43 Sodium Chloride 1,000 ml @ 1,000 mls/hr Q1H ONCE IV 11/13/24 09:15 11/13/24 10:14 DC 11/13/24 09:42 Departure 1 Departure Time of Disposition: 12:33 (Patient likely with a migraine. Patient is feeling significantly better and unlikely with a go home.) Impression: Primary Impression: Migraine Qualified Codes: G43.109 - Migraine with aura, not intractable, without s tatus migrainosus Disposition: HOME / SELF CARE / HOMELESS Condition: Stable Additional Instructions: You likely had a migraine. You received medications in the ER. You can take tylenol and motrin as needed for pain. You should stay well rested and well hydrated. It is important to follow up with your regular doctor within one week. If your symptoms worsen or you have any other concerns then please return to the ER. Discharged With: Self Critical Care Note Critical Care Time?: No Stability Stability form required: No Heart Score Heart Score: Heart Score Response (Comments) Value History N/A 0 EKG N/A 0 Age N/A 0 Risk Factors N/A 0 Troponin N/A 0 Total 0 I personally scribed for JARED TAVAREZ MD ([email or web address]) on 11/13/24 at 09:26. Electronically submitted by Felicia Webb ([email or web address]). JARED TAVAREZ MD Nov 13, 2024 09:26
[2024-11-13] MEDS: SODIUM CHLORIDE 0.9% 1,000 ML IV ONE (09:42)
[2024-11-13] MEDS: METOCLOPRAMIDE HCL 5MG/ml INJ 2ml VIAL IV ONE (09:43)
[2024-11-13] MEDS: ACETAMINOPHEN 325 MG TAB PO ONE (09:43)
[2024-11-13] MEDS: KETOROLAC TROMETH 30 MG/ML 1ML VIAL IV ONE (09:44)
[2024-11-13 10:55] VITALS: RESP 18; O2SAT 99
[2024-11-13 13:10] VITALS: BP 131/69; RESP 16; TEMP 97.9; O2SAT 98
== END 2024-11-13 13:34 | disposition home or self-care (01) ==
LOC: ER 09:02
DX: G43.109 Migraine with aura, not intractable, without status migrainosus (principal); Z79.899 Other long term (current) drug therapy
CPT/HCPCS: 96361; 96374; 96375; 99284; J1885; J2765; J7030